=== PATIENT | male | born 1950 | race African-American/Black ===

== ENCOUNTER 2017-03-25 13:07 | Emergency (ER) | payer MEDICARE, OTHER ==
--- NOTE | ~2017-03-25 | EKG ---
PATIENT: MARGARET MCDONNELL UNIT #: [id number] Ventricular Rate: 94 BPM Atrial Rate: 94 BPM P-R Interval: 140 ms QRS Duration: 88 ms Q-T Interval: 352 ms QTC Calculation(Bezet): 440 ms P Lincoln: 84 degrees Calculated R Lincoln: 77 degrees Calculated T Lincoln: 71 degrees Diagnosis Line: Sinus rhythm with occasional Premature ventricular Diagnosis Line: complexes Diagnosis Line: Right atrial enlargement Diagnosis Line: Borderline ECG Diagnosis Line: When compared with ECG of 15-AUG-2015 21:03, Diagnosis Line: Premature ventricular complexes are now Present Diagnosis Line: Confirmed by IBAN ANGEL MD ([id number]) on Diagnosis Line: 03/25/2017 4:28:50 PM INTERPRETING MD: CORRIE
--- NOTE | ~2017-03-25 | CR72 ---
[facility] A Service of [facility] & [facility] RADIOLOGY TEXT RESULTS PATIENT: MARGARET MCDONNELL LOCATION: [facility] : 48 UNIT #: [id number] AGE: [address]: Barak Arrieta MD SEX: M ORDER DR: [id number] [facility] [address] [place], [place] [address] [id number] E MR#: [id number] #: [id number] NAME: MARGARET MCDONNELL : 1950 SEX: M STUDY DATE/TIME: 03/25/2017 15:21 UNIT: [facility] ROOM: STUDY DESCRIPTION: CR Chest Single View Portable Attending Physician: Barak Arrieta M.D. Ordering Physician: Barak Arrieta M.D. Primary Care Physician: No Primary Care Physician MEDICAL IMAGING REPORT This report is preliminary unless electronic signature is present EXAM Portable chest. HISTORY Cough, shortness of breath for one week. FINDINGS AP portable view is obtained. The lungs are hyperinflated. Heart size is normal. No acute infiltrates are seen. CONCLUSION COPD. No acute process identified. Dictated by... John Singh M.D. THIS IS AN ELECTRONICALLY VERIFIED REPORT John Singh M.D. at 03/28/2017 5:11 PM Guillermina TD: 03/25/2017 19:33 JOB #: [id number] MEDICAL IMAGING REPORT Page 1 of 1 COPY
[2017-03-25 13:55] LABS: BASOPHIL# 0.1 X10e3 (0-0.3); BASOPHIL% 1.5 % (0-2.5); EOSINOPHIL# 0.9 X10e3 (0-0.7); EOSINOPHIL% 15.3 % (0.0-7.0); HEMATOCRIT 47.5 % (38.0-50.0); HEMOGLOBIN 15.4 gm/dL (13.0-16.0); LYMPHOCYTE# 1.9 X10e3 (1.0-3.5); LYMPHOCYTE% 31.5 % (17.0-45.0); MEAN CELL VOLUME 83.7 FL (83-96); MEAN CORPUSCULAR HEMOGLOBIN 27.2 PG (28-34); MEAN CORPUSCULAR HGB CONC 32.5 g/dL (30-36); MEAN PLATELET VOLUME 7.6 FL (6.5-11.5); MONOCYTE# 0.4 X10e3 (0-1.0); MONOCYTE% 6.6 % (3.0-12.0); NEUTROPHIL# 2.8 X10e3 (1.5-7.1); NEUTROPHIL% 45.1 % (40-75); PLATELET COUNT 243 X10e3 (140-420); RED BLOOD COUNT 5.68 X10e (3.90-5.60); RED CELL DISTRIBUTION WIDTH 12.7 % (11.0-15.5); WHITE BLOOD COUNT 6.1 X10e3 (4.0-10.5)
[2017-03-25 13:56] LABS: DIFF IND NO
[2017-03-25 14:18] LABS: ALBUMIN SERUM 4.3 g/dL (3.5-5.0); BILIRUBIN, DIRECT 0.2 mg/dL (0.0-0.2); BILIRUBIN,INDIRECT 0.8 mg/dL (0.0-0.9); BUN/CREATININE RATIO 8.46; CALCIUM SERUM 9.4 mg/dL (8.4-10.2); CREATININE SERUM 1.3 mg/dL (0.6-1.4); GLOM FILT RATE Estimated 65.5 mL/min (>60); PROTEIN TOTAL SERUM 7.5 g/dL (6.0-8.3)
[2017-03-25 14:53] LABS: POC - CKMB 1.2 ng/mL (0.0-7.9); POC - TROPONIN <0.05 ng/mL (<=0.05)
== END 2017-03-25 16:00 | disposition home or self-care (01) ==
LOC: CED 13:07
DX: J40 Bronchitis, not specified as acute or chronic (principal)
CPT/HCPCS: 36415; 71010; 80048; 80076; 82553; 84484; 85025; 93005; 99285

== ENCOUNTER 2017-04-20 12:48 | Emergency (ER) | payer MEDICARE, OTHER ==
--- NOTE | ~2017-04-20 | EKG ---
PATIENT: MARGARET MCDONNELL UNIT #: [id number] Ventricular Rate: 69 BPM Atrial Rate: 69 BPM P-R Interval: 152 ms QRS Duration: 86 ms Q-T Interval: 378 ms QTC Calculation(Bezet): 405 ms P Banner: 81 degrees Calculated R Banner: 79 degrees Calculated T Banner: 79 degrees Diagnosis Line: Poor data quality, interpretation may be Diagnosis Line: adversely affected Diagnosis Line: Sinus rhythm with Premature supraventricular Diagnosis Line: complexes Diagnosis Line: Otherwise normal ECG Diagnosis Line: When compared with ECG of 25-MAR-2017 14:02, Diagnosis Line: Premature ventricular complexes are no longer Diagnosis Line: Present Diagnosis Line: Confirmed by LACI REY MD ([id number]) on Diagnosis Line: 04/21/2017 10:39:43 AM INTERPRETING MD: KRISSY DAILEY
--- NOTE | ~2017-04-20 | CT2 ---
[facility] A Service of [facility] & [facility] RADIOLOGY TEXT RESULTS PATIENT: MARGARET MCDONNELL LOCATION: [facility] : 48 UNIT #: [id number] AGE: [address]: Josafat Younger MD SEX: M ORDER DR: [id number] [facility] [address] [place], [place] [address] [id number] E MR#: [id number] Acc #: [id number] NAME: MARGARET MCDONNELL : 1950 SEX: M STUDY DATE/TIME: 04/20/2017 16:21 UNIT: [facility] ROOM: STUDY DESCRIPTION: CT Abd and Pelv W Cont Attending Physician: Josafat Younger M.D. Referring Physician: Generic Doctor Not In System Ordering Physician: Jay Obrien D.O. Primary Care Physician: No Primary Care Physician MEDICAL IMAGING REPORT This report is preliminary unless electronic signature is present EXAM CT of abdomen and pelvis, 04/20/2017. HISTORY Pain and swelling left side. Left flank pain for [address] of the abdomen and pelvis performed with intravenous administration of 100 mL of Isovue-370. This CT exam was performed with one or more of the following radiation dose reduction techniques: automatic exposure control, adjustment of mA and/or kV according to patient size, and iterative reconstruction. COMPARISON STUDIES No prior dedicated CTs of the abdomen and pelvis for comparison. There are limited views of the upper abdomen from CT angiogram of chest dated 06/12/2015. FINDINGS Emphysema at lung bases. Inferior heart and pericardium unremarkable. Liver, gallbladder, spleen, pancreas, adrenal glands, unremarkable. Subcentimeter hypodense focus in the upper pole of the left kidney, most likely a small cyst. No change from 2015. No acute or suspicious appearing renal findings. No perinephric inflammatory change. No secondary signs of recent stone passage. CT PELVIS: No inguinal adenopathy. The urinary bladder is unremarkable. There is no abnormal fluid collection in the pelvis. No pelvic or retroperitoneal adenopathy. The distal esophagus, stomach, small bowel unremarkable. I believe the patient retains normal appendix. Moderate stool burden in the ascending and transverse colon without pathologic dilatation. No colonic wall or fold thickening, and no pericolonic STS. [facility] A Service of [facility] & [facility] RADIOLOGY TEXT RESULTS PATIENT: MARGARET MCDONNELL [id number] 48 UNIT #: [id number] AGE: [address]: Josafat Younger MD SEX: M ORDER DR: inflammatory change. This is probably physiologic in nature. There are atherosclerotic arterial calcifications. No aneurysm. Degenerative changes in the spine. No acute-appearing bony abnormality. IMPRESSION 1. There is no clearly acute abnormality in the abdomen or pelvis. 2. Gallbladder, pancreas, appendix unremarkable. There is a small subcentimeter hypodense focus in the upper pole of the left kidney unchanged from 2015, and favored to be a small cyst. No acute-appearing renal abnormalities. 3. Moderate stool burden in the ascending and transverse colon. Colon, otherwise, unremarkable. Stool burden probably physiologic in nature. Correlate with any clinical signs or symptoms of constipation. 4. Atherosclerotic arterial calcifications. No aneurysm. 5. Degenerative changes in the spine. 6. Emphysema. Dictated by... John Ashby M.D. THIS IS AN ELECTRONICALLY VERIFIED REPORT John Ashby M.D. at 04/20/2017 10:43 PM ELIZABETH/donnell TD: 04/20/2017 19:20 JOB #: [id number] MEDICAL IMAGING REPORT Page 1 of 1 COPY
--- NOTE | ~2017-04-20 | CR72 ---
[facility] A Service of [facility] RADIOLOGY TEXT RESULTS PATIENT: MARGARET MCDONNELL LOCATION: [facility] : 48 UNIT #: [id number] AGE: [address]: Josafat Younger MD SEX: M ORDER DR: [id number] [facility] [address] [place], [place] [address] [id number] E MR#: [id number] Acc #: [id number] NAME: MARGARET MCDONNELL : 1950 SEX: M STUDY DATE/TIME: 04/20/2017 14:58 UNIT: [facility] ROOM: STUDY DESCRIPTION: CR Chest Single View Portable Attending Physician: Josafat Younger M.D. Ordering Physician: Jay Obrien D.O. MEDICAL IMAGING REPORT This report is preliminary unless electronic signature is present EXAM Portable chest HISTORY Left-sided chest pain, onset today. TECHNIQUE Single AP view of the chest was obtained. COMPARISON STUDIES 03/25/2017. FINDINGS The heart and mediastinum are normal configuration. The aorta is tortuous. The lungs are emphysematous but clear with normal vascular markings. IMPRESSION Emphysema. No active disease. No change from previous exam. Dictated by... Darrel Roa M.D. THIS IS AN ELECTRONICALLY VERIFIED REPORT Darrel Roa M.D. at 04/21/2017 7:30 AM RLF/pcl TD: 04/20/2017 16:51 JOB #: [id number] MEDICAL IMAGING REPORT [facility] A Service of [facility] & [facility] RADIOLOGY TEXT RESULTS PATIENT: MARGARET MCDONNELL LOCATION: [facility] : 48 UNIT #: [id number] AGE: [address]: Josafat Younger MD SEX: M ORDER DR: Page 1 of 1 COPY
[2017-04-20 13:49] LABS: BASOPHIL# 0.1 X10e3 (0-0.3); BASOPHIL% 1.2 % (0-2.5); EOSINOPHIL# 0.2 X10e3 (0-0.7); EOSINOPHIL% 1.6 % (0.0-7.0); HEMATOCRIT 44.5 % (38.0-50.0); HEMOGLOBIN 14.4 gm/dL (13.0-16.0); LYMPHOCYTE# 3.5 X10e3 (1.0-3.5); LYMPHOCYTE% 31.8 % (17.0-45.0); MEAN CELL VOLUME 84.6 FL (83-96); MEAN CORPUSCULAR HEMOGLOBIN 27.5 PG (28-34); MEAN CORPUSCULAR HGB CONC 32.5 g/dL (30-36); MEAN PLATELET VOLUME 7.7 FL (6.5-11.5); MONOCYTE# 0.9 X10e3 (0-1.0); NEUTROPHIL# 6.4 X10e3 (1.5-7.1); NEUTROPHIL% 57.4 % (40-75); PLATELET COUNT 242 X10e3 (140-420); RED BLOOD COUNT 5.26 X10e (3.90-5.60); RED CELL DISTRIBUTION WIDTH 13.1 % (11.0-15.5); WHITE BLOOD COUNT 11.1 X10e3 (4.0-10.5)
[2017-04-20 13:50] LABS: DIFF IND NO
[2017-04-20 14:12] LABS: ALBUMIN SERUM 3.9 g/dL (3.5-5.0); BILIRUBIN, DIRECT 0.2 mg/dL (0.0-0.2); BILIRUBIN,INDIRECT 0.7 mg/dL (0.0-0.9); BILIRUBIN,TOTAL 0.9 mg/dL (0.2-2.0); CALCIUM SERUM 9.4 mg/dL (8.4-10.2); GLOM FILT RATE Estimated 89.2 mL/min (>60); POTASSIUM 3.6 mmol/L (3.5-5.1); PROTEIN TOTAL SERUM 6.8 g/dL (6.0-8.3)
[2017-04-20 17:42] LABS: POC - CKMB <1.0 ng/mL (0.0-7.9); POC - TROPONIN <0.05 ng/mL (<=0.05)
[2017-04-20 17:50] LABS: URINE SOURCE CLEAN CATCH
[2017-04-20 18:04] LABS: URINE APPEARANCE CLEAR; URINE BILIRUBIN NEG (NEG); URINE BLOOD NEG (NEG); URINE COLOR YELLOW; URINE GLUCOSE NEG (NEG); URINE KETONE NEG (NEG); URINE LEUKOCYTE ESTERASE 1+ (NEG); URINE NITRATE NEG (NEG); URINE PH 6.5 (5-8); URINE PROTEIN NEG (NEG); URINE SPECIFIC GRAVITY 1.074 (1.003-1.035)
[2017-04-20 18:07] LABS: CULTURE INDICATED? YES; URINE BACTERIA AUWI NEG (NEGATIVE); URINE SQUAMOUS EPITHELIAL CELL MOD /[HPF]; UWBCS1 AUWI 25-50 (0-5)
[2017-04-20 18:22] LABS: U HYALINE CASTS AUWI 0-2 /[LPF]
== END 2017-04-20 18:48 | disposition home or self-care (01) ==
LOC: CED 12:48
PROVIDERS: Emergency Medicine
DX: R10.9 Unspecified abdominal pain (principal); R11.2 Nausea with vomiting, unspecified; E78.5 Hyperlipidemia, unspecified; J44.9 Chronic obstructive pulmonary disease, unspecified
CPT/HCPCS: 36415; 71010; 74177; 80048; 80076; 81003; 82553; 83690; 84484; 85025; 85379; 87086; 87088; 87186; 93005; 96374; 96375; 99285; J1885; Q9967